=== PATIENT | female | born 1985 | race African-American/Black ===

== ENCOUNTER 2016-04-17 09:17 | Emergency (ER) | payer SELFPAY ==
[2016-04-17 09:42] LABS: Bilirubin Negative (Negative); Blood, Urine Negative (Negative); Glucose, Urine (Dipstick) Negative (Negative); Ketone, Urine Negative (Negative); Nitrite Negative (Negative); Protein, Urine (Dipstick) Negative (Neg-Trace)
[2016-04-17 09:52] LABS: Bacteria/HPF 1+ HPF (None Seen); RBC/HPF None Seen HPF (0-3); Squamous Epithelial 0-3 HPF (0-3); WBC/HPF 0-3 HPF (0-3)
[2016-04-17] MEDS ORDERED: Benzonatate 100 MG CAP ONE (09:59)
[2016-04-17] MEDS ORDERED: Ketorolac Tromethamine 60 MG/2 ML VIAL ONE (09:59)
== END 2016-04-17 10:22 | disposition home or self-care (01) ==
LOC: BURERS 09:17
DX: B34.9 Viral infection, unspecified (principal); N39.0 Urinary tract infection, site not specified; F41.9 Anxiety disorder, unspecified; F32.9 Major depressive disorder, single episode, unspecified; F17.210 Nicotine dependence, cigarettes, uncomplicated
CPT/HCPCS: 81003; 81015; 81025; 96372; J1885

== ENCOUNTER 2017-01-02 13:46 | Emergency (ER) | payer OTHER | END 2017-01-02 15:02 | disposition home or self-care (01) | LOC: BURERS 13:46 | DX: S33.5XXA Sprain of ligaments of lumbar spine, initial encounter (principal); F41.9 Anxiety disorder, unspecified; F32.9 Major depressive disorder, single episode, unspecified; F17.210 Nicotine dependence, cigarettes, uncomplicated; V49.9XXA Car occupant (driver) (passenger) injured in unspecified traffic accident, initial encounter | CPT/HCPCS: 99283 ==